=== PATIENT | female | born 1990 | race Caucasian/White ===

== ENCOUNTER 2020-08-30 07:41 | Emergency (ER) | payer OTHER ==
[~2020-08-30] VITALS: Ht 167.6 cm; Wt 106.9 kg
[2020-08-30] MEDS: IV RINGERS SOLUTION,LACTATED 1,000 ML IV ONE (08:31)
[2020-08-30 08:38] LABS: BASO % 0 % (0-3); EOS # 0.1 x10^3/uL (0.0-0.7); EOS % 0 % (0-3); HEMATOCRIT 29.9 % (36.0-47.0); HEMOGLOBIN 9.9 g/dL (12.0-15.5); LYMPH # 2.2 x10^3/uL (1.0-4.8); LYMPH % 17 % (24-48); MEAN CORPUSCULAR HEMOGLOBIN 28 pg (25-35); MEAN CORPUSCULAR HGB CONC 33 g/dL (31-37); MEAN CORPUSCULAR VOLUME 85 fL (79-100); MONO # 0.6 x10^3/uL (0.0-1.1); MONO % 5 % (0-9); NEUT # 10.4 x10^3uL (1.8-7.7); NEUT % 78 % (31-73); PLATELET COUNT 268 x10^3/uL (140-400); RED BLOOD COUNT 3.53 x10^6/uL (3.50-5.40); RED CELL DISTRIBUTION WIDTH 14.5 % (11.5-14.5); WHITE BLOOD COUNT 13.4 x10^3/uL (4.0-11.0)
[2020-08-30 08:51] LABS: CALCIUM 8.8 mg/dL (8.5-10.1); CREATININE 0.7 mg/dL (0.6-1.0); GFR 98.9; POTASSIUM 3.9 mmol/L (3.5-5.1)
[2020-08-30 08:56] LABS: BILIRUBIN,URINE NEG (NEG); CLARITY,URINE HAZY; COLOR,URINE YELLOW; GLUCOSE,URINE NEG (NEG)
[2020-08-30 08:57] LABS: NITRITE,URINE NEG (NEG); RBC,URINE 0 /HPF (0-2); UROBILINOGEN,URINE 0.2 mg/dL (0.2 mg/dL)
[2020-08-30 08:58] LABS: AMORPHOUS SEDIMENT,UR PRESENT /HPF; BACTERIA,URINE FEW /HPF (0-FEW); SQUAMOUS EPITHELIAL CELL,UR OCC /LPF; WBC,URINE RARE /HPF (0-4)
--- NOTE | 2020-08-30 09:10 | RAD ---
EXAM: OB ULTRASOUND, > 14 WEEKS HISTORY: Decreased movement. COMPARISON: None. TECHNIQUE: Multiple grayscale images, color Doppler, and M-mode images of the uterus are obtained. FINDINGS: There is a single intrauterine gestation in cephalic presentation. The placenta is posterior in locat ion without evidence of placenta previa. The amount of amniotic fluid appears appropriate. Amniotic fluid index is 17.3 cm. The cervix is obscured Biometrical data: BPD = 6.1 cm for 24 weeks 6 days. HC = 22.9 cm for 24 weeks 6 days. AC = 21.2 cm for 25 weeks 5 days. FL = 4.5 cm for 24 weeks 6 days. HC/AC ratio = 1.1. Overall, the estimated sonographic gestational age is 25 weeks and 1 day for an estimated date of del vamsi of 12/12/2020. The estimated date of delivery provided by the last menstrual period is 12/14/2020. Estimated weight is 792 grams. A 4 chamber heart is identified with positive cardiac activity. The estimated heart rate is 143 beats per minute. There is normal body motion. No respiratory motion is seen during the exam. The lexi mariella is not formally assessed on this exam. The maternal adnexal regions are not formally assessed. IMPRESSION: 1. Single intrauterine fetus with normal heart rate and gestational age patient also measurements of 25 weeks and 1 day. 2. Note is made that a formal anatomy survey was not performed at the time of this exam. The [facility] reports this that a anatomy survey was performed at an outside facility. Electronically signed by: Rosa Perez MD (08/30/2020 9:08 AM) [id number]
--- NOTE | 2020-08-30 09:15 | PHYS DOC ---
Past History Past Medical History: GERD, IBS, Other Additional Past Medical Histor: ARELY Past Surgical History: Tonsillectomy Alcohol Use: None Adult General Chief Complaint Chief Complaint: ABDOMINAL PAIN IN HPI HPI Patient is a 30-year-old female presenting for decreased movement. Patient is 24w6d concern for decreased movement. She has history of early miscarriage and failed IUP, states this is her "miracle baby" and is product of IVF. 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 She has not established care with anyone since arrival to the area. She is concerned because she has felt decreased movement that started yesterday evening without any known inciting event or trauma. No vaginal discharge, loss of fluid or blood Review of Systems Review of Systems Fourteen body systems of review of systems have been reviewed. See HPI for pertinent positives and negative responses, other whitehead all other systems are negative, non-pertinent or non-contributory Current Medications Current Medications Current Medications Medications (Trade) Dose Ordered Sig/Erin Start Time Stop Time Status Last Admin Dose Admin Lactated Ringer's 1,000 ml @ 100 mls/hr 1X ONCE 08/30/20 08:30 08/30/20 18:29 08/30/20 08:31 100 MLS/HR Allergies Allergies Allergies Coded Allergies Type Severity Reaction Last Updated Verified Sulfa (Sulfonamide Antibiotics) Allergy Unknown 08/30/20 Yes amoxicillin Allergy Unknown 08/30/20 Yes cefadroxil Allergy Unknown 08/30/20 Yes clavulanic acid Allergy Unknown 08/30/20 Yes tramadol Allergy Unknown 08/30/20 Yes Physical Exam Physical Exam Constitutional: Well developed, well nourished, no acute distress, non-toxic appearance. HENT: Normocephalic, atraumatic, bilateral external ears normal, oropharynx moist, no oral exudates, nose normal. Eyes: PERRLA, EOMI, conjunctiva normal, no discharge. Neck: Normal range of motion, no tenderness, supple, no stridor. Cardiovascular: Heart rate regular, sinus rhythm, no murmurs rubs or gallops Lungs & Thorax: Bilateral breath sounds clear to auscultation Abdomen: Bowel sounds normal, soft and gravid, no tenderness, no masses, no pulsatile masses. Nonsurgical abdomen, no peritoneal signs Skin: Warm, dry, no erythema, no rash. Back: No tenderness, no CVA tenderness. Extremities: No tenderness, no cyanosis, no clubbing, ROM intact, no edema. Neurologic: Alert and oriented X 3, grossly normal motor & sensory function, no focal deficits noted. Psychologic: Tearful affect, anxious mood Current Patient Data Vital Signs Vital Signs Date Time Temp Pulse Resp B/P (MAP) Pulse Ox O2 Delivery O2 Flow Rate FiO2 08/30/20 07:50 98.0 92 18 162/69 (100) 97 Room Air Lab Results Laboratory Tests Test 08/30/20 08:23 08/30/20 08:28 White Blood Count 13.4 x10^3/uL (4.0-11.0) H Red Blood Count 3.53 x10^6/uL (3.50-5.40) Hemoglobin 9.9 g/dL (12.0-15.5) L Hematocrit 29.9 % (36.0-47.0) L Mean Corpuscular Volume 85 fL (79-100) Mean Corpuscular Hemoglobin 28 pg (25-35) Mean Corpuscular Hemoglobin Concent 33 g/dL (31-37) Red Cell Distribution Width 14.5 % (11.5-14.5) Platelet Count 268 x10^3/uL (140-400) Neutrophils (%) (Auto) 78 % (31-73) H Lymphocytes (%) (Auto) 17 % (24-48) L Monocytes (%) (Auto) 5 % (0-9) Eosinophils (%) (Auto) 0 % (0-3) Basophils (%) (Auto) 0 % (0-3) Neutrophils # (Auto) 10.4 x10^3uL (1.8-7.7) H Lymphocytes # (Auto) 2.2 x10^3/uL (1.0-4.8) Monocytes # (Auto) 0.6 x10^3/uL (0.0-1.1) Eosinophils # (Auto) 0.1 x10^3/uL (0.0-0.7) Basophils # (Auto) 0.0 x10^3/uL (0.0-0.2) Sodium Level 139 mmol/L (136-145) Potassium Level 3.9 mmol/L (3.5-5.1) Chloride Level 105 mmol/L (98-107) Carbon Dioxide Level 23 mmol/L (21-32) Anion Gap 11 (6-14) Blood Urea Nitrogen 6 mg/dL (7-20) L Creatinine 0.7 mg/dL (0.6-1.0) Estimated GFR (Cockcroft-Gault) 98.9 Glucose Level 116 mg/dL (70-99) H Calcium Level 8.8 mg/dL (8.5-10.1) Urine Collection Type Unknown Urine Color Yellow Urine Clarity Hazy Urine pH 7.0 Urine Specific Conway 1.020 Urine Protein Neg (NEG-TRACE) Urine Glucose (UA) Neg mg/dL (NEG) Urine Ketones (Stick) Neg mg/dL (NEG) Urine Blood Neg (NEG) Urine Nitrite Neg (NEG) Urine Bilirubin Neg (NEG) Urine Urobilinogen Dipstick 0.2 mg/dL (0.2 mg/dL) Urine Leukocyte Esterase Trace (NEG) Urine RBC 0 /HPF (0-2) Urine WBC Rare /HPF (0-4) Urine Squamous Epithelial Cells Occ /LPF Urine Amorphous Sediment Present /HPF Urine Bacteria Few /HPF (0-FEW) EKG EKG [] Radiology/Procedures Radiology/Procedures EXAM: OB ULTRASOUND, > 14 WEEKS HISTORY: Decreased movement. COMPARISON: None. TECHNIQUE: Multiple grayscale images, color Doppler, and M-mode images of the uterus are obtained. FINDINGS: There is a single intrauterine gestation in cephalic presentation. The placenta is posterior in location without evidence of placenta previa. The amount of amniotic fluid appears appropriate. Amniotic fluid index is 17.3 cm. The cervix is obscured Biometrical data: BPD = 6.1 cm for 24 weeks 6 days. HC = 22.9 cm for 24 weeks 6 days. AC = 21.2 cm for 25 weeks 5 days. FL = 4.5 cm for 24 weeks 6 days. HC/AC ratio = 1.1. Overall, the estimated sonographic gestational age is 25 weeks and 1 day for an estimated date of delivery of 12/12/2020. The estimated date of delivery provided by the last menstrual period is 12/14/2020. Estimated weight is 792 grams. A 4 chamber heart is identified with positive cardiac activity. The estimated heart rate is 143 beats per minute. There is normal body motion. No respiratory motion is seen during the exam. The anatomy is not formally assessed on this exam. The maternal adnexal regions are not formally assessed. IMPRESSION: 1. Single intrauterine fetus with normal heart rate and gestational age patient also measurements of 25 weeks and 1 day. 2. Note is made that a formal anatomy survey was not performed at the time of this exam. The patient reports this that a anatomy survey was performed at an outside facility. Electronically signed by: Rosa Perez MD (08/30/2020 9:08 AM) [id number] Heart Score C/O Chest Pain: No HEART Score for Chest Pain: HEART Score for Chest Pain Response (Comments) Value History Slighlty/Non-Suspicious 0 Age < 45 0 Total 0 Risk Factors: Risk Factors: DM, Current or recent (<one month) smoker, HTN, HLP, family history of CAD, obesity. Risk Scores: Risk Factors: DM, Current or recent (<one month) smoker, HTN, HLP, family history of CAD, obesity. Course & Med Decision Making Course & Med Decision Making Pertinent Labs and Imaging studies reviewed. (See chart for details) [] Dragon Disclaimer Dragon Disclaimer This electronic medical record was generated, in whole or in part, using a voice recognition dictation system. Departure Departure: Impression: Primary Impression: Feared condition not demonstrated Additional Impression: and not yet delivered in third trimester Disposition: 01 HOME / SELF CARE / HOMELESS Condition: STABLE Referrals: GRAHAM MCCOY (PCP) Patient Instructions: ABCs of , - Third Trimester Additional Instructions: You were seen for suspect decreased movement. Your vitals, physical exam and ER work-up was nonconcerning for emergent or surgical issues. As disclose, your blood pressure was slightly elevated on arrival likely due to anxiety of being here, you need to get a blood pressure cuff and keep a dedicated blood pressure log for review with your [facility] at outpatient follow-up. You need to return to the ED immediately if you develop worsening pain, heavy vaginal bleeding, chest pain, shortness of breath, excessive fatigue, lightheadedness, or any other new or concerning symptoms. It was a pleasure to take care of you and I wish you the best going forward Problem Qualifiers RAPHAEL LEVIN DO August 30, 2020 09:15
[2020-08-30 09:35] VITALS: BP 137/78
== END 2020-08-30 09:42 | disposition home or self-care (01) ==
LOC: ER 07:41
DX: Z34.92 Encounter for supervision of normal pregnancy, unspecified, second trimester (principal); Z71.1 Person with feared health complaint in whom no diagnosis is made; K21.9 Gastro-esophageal reflux disease without esophagitis; Z3A.25 25 weeks gestation of pregnancy; Z88.2 Allergy status to sulfonamides; Z88.1 Allergy status to other antibiotic agents; Z88.8 Allergy status to other drugs, medicaments and biological substances
CPT/HCPCS: 36415; 76815; 80048; 81001; 85025; 87086; 96360; 99284; J7120

== ENCOUNTER 2021-06-28 15:36 | Emergency (ER) | payer OTHER ==
[~2021-06-28] VITALS: Ht 167.6 cm; Wt 111.5 kg
[2021-06-28] MEDS ORDERED: MORPHINE SULFATE 4 MG/ML DISP.SYRIN. IV ONE (16:00)
[2021-06-28] MEDS ORDERED: IV NORMAL SALINE 1,000ML 1,000 ML IV ONE ×2 (16:00→16:45)
[2021-06-28] MEDS ORDERED: ONDANSETRON PF 4 MG/2 ML VIAL. IV ONE (16:00)
--- NOTE | 2021-06-28 16:03 | PHYS DOC ---
Past History Past Medical History: GERD, IBS, Other Additional Past Medical Histor: ARELY Past Surgical History: Tonsillectomy, Other Additional Past Surgical Histo: in vitro; adnoidectomy; wisdom teeth; right ring finger fx repair with pins Alcohol Use: None Adult General Chief Complaint Chief Complaint: NAUSEA/VOMITING/[facility] HPI Patient is a 31-year-old female presenting to emergency department for evaluation of abdominal pain nausea vomiting and diarrhea that started last night after eating a steak house and has persisted throughout the day. She says she took Imodium this morning which stopped the diarrhea but she has continued to have vomiting. She says the emesis is nonbloody nonbilious and the diarrhea was nonbloody as well. She says she has traveled recently but no recent antibiotics or chemotherapy. Patient denies any prior abdominal surgeries. She is anxious and tearful but nontoxic with normal vital signs other than tachycardia noted. Review of Systems Review of Systems Constitutional: Denies fever or chills [] Eyes: Denies change in visual acuity, redness, or eye pain [] HENT: Denies nasal congestion or sore throat [] Respiratory: Denies cough or shortness of breath [] Cardiovascular: No additional information not addressed in HPI [] GI: + abdominal pain, nausea, vomiting, diarrhea [] : Denies dysuria or hematuria [] Musculoskeletal: Denies back pain or joint pain [] Integument: Denies rash or skin lesions [] Neurologic: Denies headache, focal weakness or sensory changes [] All other systems were reviewed and found to be within normal limits, except as documented in this note. Current Medications Current Medications Current Medications Medications (Trade) Dose Ordered Sig/Erin Start Time Stop Time Status Last Admin Dose Admin Morphine Sulfate (Morphine 4mg Syringe) 4 mg 1X ONCE 06/28/21 16:00 06/28/21 16:01 UNV Ondansetron HCl (Zofran) 8 mg 1X ONCE 06/28/21 16:00 06/28/21 16:01 UNV Sodium Chloride 1,000 ml @ 1,000 mls/hr 1X ONCE 06/28/21 16:00 06/28/21 16:59 UNV Allergies Allergies Allergies Coded Allergies Type Severity Reaction Last Updated Verified Sulfa (Sulfonamide Antibiotics) Allergy Unknown 08/30/20 Yes amoxicillin Allergy Unknown 08/30/20 Yes cefadroxil Allergy Unknown 08/30/20 Yes clavulanic acid Allergy Unknown 08/30/20 Yes tramadol Allergy Unknown 08/30/20 Yes Physical Exam Physical Exam Constitutional: Well developed, well nourished, no acute distress, non-toxic appearance. [] HENT: Normocephalic, atraumatic, bilateral external ears normal, oropharynx moist, no oral exudates, nose normal. [] Eyes: PERRLA, EOMI, conjunctiva normal, no discharge. [] Neck: Normal range of motion, no tenderness, supple, no stridor. [] Cardiovascular: Tachycardic heart rate, regular rhythm, no murmur [] Lungs & Thorax: Bilateral breath sounds clear to auscultation [] Abdomen: Bowel sounds normal, soft, diffuse nonfocal tenderness to palpation with no rebound or guarding Skin: Warm, dry, no erythema, no rash. [] Back: No tenderness, no CVA tenderness. [] Extremities: No tenderness, no cyanosis, no clubbing, ROM intact, no edema. [] Neurologic: Alert and oriented X 3, normal motor function, normal sensory function, no focal deficits noted. [] Current Patient Data Vital Signs Vital Signs Date Time Temp Pulse Resp B/P (MAP) Pulse Ox O2 Delivery O2 Flow Rate FiO2 06/28/21 15:51 98.5 130 18 132/87 (102) 97 Room Air EKG EKG [] Radiology/Procedures Radiology/Procedures [] Heart Score C/O Chest Pain: No Risk Factors: Risk Factors: DM, Current or recent (<one month) smoker, HTN, HLP, family history of CAD, obesity. Risk Scores: Risk Factors: DM, Current or recent (<one month) smoker, HTN, HLP, family history of CAD, obesity. Course & Med Decision Making Course & Med Decision Making Patient with signs and symptoms of a gastroenteritis. I will check labs and imaging treat symptoms and reassess. Patient thankfully has no signs of acute surgical pathology but there is multiple abnormal labs I discussed with patient including signs of dehydration with decreased CO2 ketones in her urine and elevated specific gravity with mild leukocytosis as well. I discussed all incidental findings on CT including the lymphadenitis and the need for follow-up. Thankfully patient is feeling much better and drink 2 large cups of water with no difficulty pain or vomiting. Her heart rate has improved to 90 from 1 2:30 liters of IV fluids and she states she feels well and like to go home. Given patient appears well with normal vital signs benign physical exam work-up and is asking to go home I will discharge her in stable condition told her to follow with primary care provider within 3 to 4 days for recheck and come back to emergency department sooner with worsening pain fevers vomiting or other general concerns. Patient aware and agreeable with plan verbalized understanding the above instructions. Dragon Disclaimer Dragon Disclaimer This electronic medical record was generated, in whole or in part, using a voice recognition dictation system. Departure Departure: Impression: Primary Impression: Abdominal pain Additional Impressions: Dehydration Nausea & vomiting Diarrhea Disposition: HOME / SELF CARE / HOMELESS Condition: STABLE Referrals: GRAHAM MCCOY (PCP) Patient Instructions: Viral Gastroenteritis, [id number] Scripts Hydrocodone Bit/Acetaminophen (HYDROCODONE-APAP 5-325 ) 1 Each Tablet 1 TAB PO PRN Q6HRS PRN for PAIN, #10 TAB 0 Refills Prov: NATHALIE JIMENEZ DO 06/28/21 Ondansetron (ONDANSETRON ODT) 4 Mg Tab.rapdis 4 MG PO Q6HRS PRN for NAUSEA/VOMITING, #14 TAB Prov: NATHALIE JIMENEZ DO 06/28/21 Problem Qualifiers Primary Impression: Abdominal pain Abdominal location: generalized Qualified Codes: R10.84 - Generalized abdominal pain NATHALIE JIMENEZ DO Jun 28, 2021 16:03
[2021-06-28] MEDS ORDERED: IOHEXOL 300 MG/ML 75 ML VIAL. IV ONE (16:15)
[2021-06-28 16:37] LABS: BASO % 0 % (0-3); EOS % 0 % (0-3); HEMATOCRIT 41.3 % (36.0-47.0); HEMOGLOBIN 13.4 g/dL (12.0-15.5); LYMPH # 0.4 x10^3/uL (1.0-4.8); LYMPH % 3 % (24-48); MEAN CORPUSCULAR HEMOGLOBIN 25 pg (25-35); MEAN CORPUSCULAR HGB CONC 33 g/dL (31-37); MEAN CORPUSCULAR VOLUME 78 fL (79-100); MONO # 0.3 x10^3/uL (0.0-1.1); MONO % 2 % (0-9); NEUT % 94 % (31-73); PLATELET COUNT 331 x10^3/uL (140-400); RED BLOOD COUNT 5.31 x10^6/uL (3.50-5.40); RED CELL DISTRIBUTION WIDTH 17.6 % (11.5-14.5); WHITE BLOOD COUNT 11.7 x10^3/uL (4.0-11.0)
[2021-06-28 16:39] LABS: CLARITY,URINE CLOUDY; COLOR,URINE YELLOW; GLUCOSE,URINE NEG (NEG); NITRITE,URINE NEG (NEG); UROBILINOGEN,URINE 0.2 mg/dL (0.2 mg/dL)
[2021-06-28 16:40] LABS: BACTERIA,URINE 0 /HPF (0-FEW); RBC,URINE >40 /HPF (0-2); SQUAMOUS EPITHELIAL CELL,UR FEW /LPF; WBC,URINE 0 /HPF (0-4)
[2021-06-28 16:40] LABS: CALCIUM 9.2 mg/dL (8.5-10.1); CREATININE 0.7 mg/dL (0.6-1.0); GFR 98.3
[2021-06-28 16:46] LABS: ALBUMIN 4.2 g/dL (3.4-5.0); ALBUMIN/GLOBULIN RATIO 1.2 (1.0-1.7); TOTAL BILIRUBIN 0.5 mg/dL (0.2-1.0); TOTAL PROTEIN 7.7 g/dL (6.4-8.2)
--- NOTE | 2021-06-28 17:16 | RAD ---
CT OF THE ABDOMEN AND PELVIS WITH IV CONTRAST. History: Reason: diffuse pain, n,v,d Comparison:None. Procedure: Contiguous axial images of the abdomen and pelvis were performed after the administration of 75 cc o f Omnipaque 300 IV contrast. Oral contrast: No. Findings: At L5-S1 there is bilateral spondylolysis and grade 2 anterolisthesis of L5 on S1. The colon is partially collapsed on the left limiting its evaluation. The appendix is normal. The gal lbladder appears normal. There is multiple small mesenteric lymph nodes on the right. Liver: Hypoattenuation anteriorly along the fissures likely focal fatty infiltration Spleen: Top normal limits in size Pancreas: Unremarkable Adrenal Glands: Unremarkable Kidneys: There is a small nonobstructive stone left renal pelvis. There is no free air. There is no free fluid. The urinary bladder appears normal. Impression: Mild lymphadenopathy could be lymphadenitis. End Impression PQRS Compliance Statement: One or more of the following individualized dose reduction techniques were utilized for this examinat ion: 1. Automated exposure control 2. Adjustment of the mA and/or kV according to patient size 3. Use of iterative reconstruction technique Electronically signed by: Damien Harman III, MD (06/28/2021 5:13 PM) [facility]
[2021-06-28] MEDS ORDERED: ONDA4TAB12 PO (17:36)
[2021-06-28] MEDS ORDERED: HYDR-2155 PO (17:36)
[2021-06-28 18:47] VITALS: BP 144/79
== END 2021-06-28 18:45 | disposition home or self-care (01) ==
LOC: ER 15:36
DX: E86.0 Dehydration (principal); R10.84 Generalized abdominal pain; K21.9 Gastro-esophageal reflux disease without esophagitis; Z88.2 Allergy status to sulfonamides; Z88.1 Allergy status to other antibiotic agents; Z88.8 Allergy status to other drugs, medicaments and biological substances
CPT/HCPCS: 36415; 74177; 80053; 81001; 81025; 83690; 85025; 96361; 96374; 96375; 99285; J2270; J2405; J7030; Q9967